=== PATIENT | female | born 1970 | race Caucasian/White ===

== ENCOUNTER 2022-06-10 00:05 | Emergency (ER) | payer MEDICAID ==
[2022-06-10] MEDS: Acetaminophen 325 MG Tab PO ONE (00:56)
== END 2022-06-10 04:37 | disposition short-term general hospital (02) ==
LOC: VM.ED 00:05
DX: S62.114A Nondisplaced fracture of triquetrum [cuneiform] bone, right wrist, initial encounter for closed fracture (principal); L08.9 Local infection of the skin and subcutaneous tissue, unspecified; Z79.82 Long term (current) use of aspirin; Z79.899 Other long term (current) drug therapy; W19.XXXA Unspecified fall, initial encounter
CPT/HCPCS: 36415; 73110-RT; 80053; 85025; 99284; A9270-GY

== ENCOUNTER 2022-06-27 15:42 | Emergency (ER) | payer MEDICAID ==
[2022-06-27] MEDS ORDERED: Orphenadrine 60 MG/2 ML Inj IM ONE (15:54)
[2022-06-27] MEDS ORDERED: Ketorolac 30 MG/ML SDV IM ONE (15:54)
[2022-06-27] MEDS ORDERED: Take Home: traMADol 50 MG, 4 Tab Pack PO ONE (17:06)
[2022-06-27] MEDS ORDERED: Take Home: Cyclobenzaprine 10 MG Tab, 4 Tab Pack PO ONE (17:06)
== END 2022-06-27 17:28 | disposition home or self-care (01) ==
LOC: SUPCPDRO 15:42 → VM.ED 15:42
DX: M54.41 Lumbago with sciatica, right side (principal); I25.10 Atherosclerotic heart disease of native coronary artery without angina pectoris; I12.9 Hypertensive chronic kidney disease with stage 1 through stage 4 chronic kidney disease, or unspecified chronic kidney disease; N18.9 Chronic kidney disease, unspecified; E03.9 Hypothyroidism, unspecified; Z79.82 Long term (current) use of aspirin; Z79.899 Other long term (current) drug therapy; Z72.0 Tobacco use
CPT/HCPCS: 72100; 96372; 99283; A9270-GY; J1885; J2360

== ENCOUNTER 2023-10-28 11:07 | Emergency (ER) | payer MEDICAID ==
[2023-10-28] MEDS ORDERED: Sodium Chloride 0.9% 10 ML Syringe FLUSH PRN (11:26)
[2023-10-28 11:50] LABS: BASOPHILS PERCENT AUTO 0.3 % (0.2-1.2); EOSINOPHILS ABSOLUTE AUTO 0.2 x10^3/uL (0.0-0.5); EOSINOPHILS PERCENT AUTO 2.6 % (0.0-4.0); HEMATOCRIT 43.1 % (33.0-47.0); HEMOGLOBIN 14.4 g/dL (12.0-16.0); IMMATURE GRAN ABSOLUTE AUTO 0.01 x10^3/uL (0.00-0.07); LYMPHOCYTES ABSOLUTE AUTO 2.1 x10^3/uL (1.0-4.8); LYMPHOCYTES PERCENT AUTO 28.4 % (25.0-50.0); MEAN CORPUSCULAR HGB CONC 33.4 g/dL (32.0-36.0); MEAN CORPUSCULAR VOLUME 83.7 fL (78.0-93.0); MONOCYTES ABSOLUTE AUTO 0.5 x10^3/uL (0.0-0.8); MONOCYTES PERCENT AUTO 7.3 % (2.0-11.0); NEUTROPHILS ABSOLUTE AUTO 4.4 x10^3/uL (1.8-7.7); NEUTROPHILS PERCENT AUTO 61.3 % (50.0-80.0); PLATELET COUNT,PLT 256 x10^3/uL (130-400); RED BLOOD CELL COUNT 5.15 x10^6/uL (4.00-5.50); WHITE BLOOD CELL COUNT,WBC 7.2 x10^3/uL (4.0-10.0)
[2023-10-28 12:09] LABS: PROTHROMBIN TIME 10.6 SEC (8.9-11.5)
[2023-10-28] MEDS: Metoclopramide 10 MG/2 ML SDV IVPUSH ONE (12:13)
[2023-10-28] MEDS: Ketorolac 15 MG/ML SDV IVPUSH ONE (12:15)
[2023-10-28 12:17] LABS: A/G RATIO 0.97; ALANINE AMINOTRANSFERASE,ALT 21 U/L (14-59); ALBUMIN 3.6 g/dL (3.4-5.0); ALKALINE PHOSPHATASE 86 U/L (46-116); ASPARTATE AMNIOTRANSFERASE,AST 19 U/L (15-37); BILIRUBIN TOTAL 0.2 mg/dL (0.2-1.0); BLOOD UREA NITROGEN,BUN 18 mg/dL (7-18); CALCIUM 10.5 mg/dL (8.5-10.1); CARBON DIOXIDE,CO2 24 mmol/L (21-32); CHLORIDE,CL 106 mmol/L (98-107); CREATININE 1.4 mg/dL (0.55-1.02); GLUCOSE RANDOM 97 mg/dL (70-99); MAGNESIUM 1.8 mg/dL (1.8-2.4); POTASSIUM,K 4.3 mmol/L (3.5-5.1); PROTEIN TOTAL,TP 7.3 g/dL (6.4-8.2); SODIUM,NA 143 mmol/L (136-145)
[2023-10-28 12:25] LABS: ANION GAP 17.3 mmol/L (5-15); ESTIMATED GFR 44 mL/min (>=60)
== END 2023-10-28 12:52 | disposition home or self-care (01) ==
LOC: VM.ED 11:07
DX: I13.10 Hypertensive heart and chronic kidney disease without heart failure, with stage 1 through stage 4 chronic kidney disease, or unspecified chronic kidney disease (principal); I51.9 Heart disease, unspecified; N18.9 Chronic kidney disease, unspecified; I25.10 Atherosclerotic heart disease of native coronary artery without angina pectoris; E03.9 Hypothyroidism, unspecified; F17.210 Nicotine dependence, cigarettes, uncomplicated; Z79.82 Long term (current) use of aspirin; Z79.899 Other long term (current) drug therapy
CPT/HCPCS: 70450; 71045; 80053; 83735; 84484; 85025; 85610; 85730; 93005; 93010; 96374; 96375; 99284; 99284-25; J1885; J2765

== ENCOUNTER 2024-04-18 11:35 | Inpatient (IN) | payer MEDICAID ==
[2024-04-18] MEDS: HYDROmorphone 1 MG/ML Syringe IVPUSH ONE ×2 (11:44→14:59)
[2024-04-18 11:54] LABS: BASOPHILS PERCENT AUTO 0.2 % (0.2-1.2); EOSINOPHILS ABSOLUTE AUTO 0.1 x10^3/uL (0.0-0.5); EOSINOPHILS PERCENT AUTO 0.5 % (0.0-4.0); HEMATOCRIT 55.5 % (33.0-47.0); HEMOGLOBIN 19.4 g/dL (12.0-16.0); IMMATURE GRAN ABSOLUTE AUTO 0.03 x10^3/uL (0.00-0.07); LYMPHOCYTES ABSOLUTE AUTO 1.8 x10^3/uL (1.0-4.8); LYMPHOCYTES PERCENT AUTO 13.3 % (25.0-50.0); MONOCYTES ABSOLUTE AUTO 0.5 x10^3/uL (0.0-0.8); NEUTROPHILS ABSOLUTE AUTO 10.9 x10^3/uL (1.8-7.7); NEUTROPHILS PERCENT AUTO 81.8 % (50.0-80.0); PLATELET COUNT,PLT 323 x10^3/uL (130-400); RED BLOOD CELL COUNT 6.94 x10^6/uL (4.00-5.50); WHITE BLOOD CELL COUNT,WBC 13.3 x10^3/uL (4.0-10.0)
[2024-04-18 12:15] LABS: A/G RATIO 0.86; ALANINE AMINOTRANSFERASE,ALT 20 U/L (14-59); ALBUMIN 4.2 g/dL (3.4-5.0); ALKALINE PHOSPHATASE 126 U/L (46-116); ASPARTATE AMNIOTRANSFERASE,AST 22 U/L (15-37); BILIRUBIN TOTAL 0.8 mg/dL (0.2-1.0); BLOOD UREA NITROGEN,BUN 40 mg/dL (7-18); CALCIUM 9.8 mg/dL (8.5-10.1); CARBON DIOXIDE,CO2 21 mmol/L (21-32); CHLORIDE,CL 98 mmol/L (98-107); GLUCOSE RANDOM 175 mg/dL (70-99); LIPASE 40 U/L (19-71); POTASSIUM,K 3.5 mmol/L (3.5-5.1); PROTEIN TOTAL,TP 9.1 g/dL (6.4-8.2); SODIUM,NA 137 mmol/L (136-145)
[2024-04-18 12:17] LABS: ANION GAP 21.5 mmol/L (5-15); ESTIMATED GFR 29 mL/min (>=60)
[2024-04-18] MEDS: Sodium Chloride 0.9% 1,000 ML IV ONE (12:59)
[2024-04-18] MEDS: Alum Hydrox/Mag Hydrox/Simeth 30 ML, Lidocaine 2% 15 ML PO ONE (14:36)
[2024-04-18] MEDS: Ondansetron 4 MG Tab.DIS PO ONE (14:45)
[2024-04-18 16:26] LABS: APPEARANCE,URINE CLEAR (CLEAR); BILIRUBIN,URINE NEGATIVE (NEGATIVE); COLOR,URINE YELLOW (YELLOW); GLUCOSE,URINE NEGATIVE (NEGATIVE); KETONES,URINE TRACE mg/dL (NEGATIVE); LEUKOCYTE ESTERASE,URINE NEGATIVE (NEGATIVE); NITRITE,URINE NEGATIVE (NEGATIVE); OCCULT BLOOD,URINE MODERATE (NEGATIVE); PH,URINE 5.5 (5.0-8.0); PROTEIN,URINE 100 mg/dL (NEGATIVE); UROBILINOGEN,URINE 0.2 EU/dL (0.2)
[2024-04-18 16:33] LABS: BACTERIA,URINE NOT SEEN /HPF (NOT SEEN); HYALINE CASTS,URINE FEW; MUCUS,URINE NOT SEEN /LPF (NOT SEEN); RBC,URINE 0-5 /HPF (NOT SEEN); SQUAMOUS EPITHELIAL CELLS,UR FEW /HPF (NOT SEEN); WBC,URINE 0-5 /HPF (NOT SEEN)
[2024-04-18] MEDS ORDERED: HYDROmorphone 0.5 MG/0.5 ML Syringe IVPUSH PRN (16:33)
[2024-04-18] MEDS ORDERED: Labetalol 20 MG/4 ML Syringe IVPUSH PRN (16:45)
[2024-04-18] MEDS: Ondansetron 4 MG/2 ML SDV IV PRN (17:03)
[2024-04-18] MEDS: Labetalol 20 MG/4 ML Syringe IVPUSH ONE (17:04)
[2024-04-18 17:10] LABS: AMPHETAMINES SCREEN, URINE NEGATIVE (NEGATIVE); BARBITURATE SCREEN,URINE NEGATIVE (NEGATIVE); BENZODIAZEPINES SCREEN,URINE NEGATIVE (NEGATIVE); BUPRENORPHINE SCREEN,URINE NEGATIVE (NEGATIVE); COCAINE METABOLITES,URINE NEGATIVE (NEGATIVE); METHADONE SCREEN, URINE NEGATIVE (NEGATIVE); METHAMPHETAMINE SCREEN, URINE POSITIVE (NEGATIVE); OXYCODONE SCREEN,URINE NEGATIVE (NEGATIVE); PCP SCREEN,URINE NEGATIVE (NEGATIVE); THC SCREEN,URINE 50 NG/ML POSITIVE (NEGATIVE)
[2024-04-18] MEDS: Dextrose 5%-0.45% NaCl 1,000 ML IV SCH (17:10)
[2024-04-18 17:30] LABS: C-REACTIVE PROTEIN 0.9 mg/dL (<=0.50); MAGNESIUM 2.3 mg/dL (1.8-2.4)
[2024-04-18] MEDS: Pantoprazole 40 MG Vial IVPUSH SCH (17:52)
[2024-04-18] MEDS: HYDROmorphone 1 MG/ML Syringe IVPUSH PRN (17:54)
[2024-04-18] MEDS: Nicotine 21 MG/24 Hr Patch TRDERM SCH (17:58)
[2024-04-19] MEDS: Levothyroxine 50 MCG Tab PO SCH (06:47)
[2024-04-19 08:05] LABS: BASOPHILS PERCENT AUTO 0.2 % (0.2-1.2); EOSINOPHILS ABSOLUTE AUTO 0.2 x10^3/uL (0.0-0.5); EOSINOPHILS PERCENT AUTO 1.5 % (0.0-4.0); HEMATOCRIT 47.5 % (33.0-47.0); HEMOGLOBIN 16.1 g/dL (12.0-16.0); IMMATURE GRAN ABSOLUTE AUTO 0.03 x10^3/uL (0.00-0.07); LYMPHOCYTES ABSOLUTE AUTO 2.6 x10^3/uL (1.0-4.8); LYMPHOCYTES PERCENT AUTO 21.9 % (25.0-50.0); MEAN CORPUSCULAR HEMOGLOBIN 27.9 pg (26.0-32.0); MEAN CORPUSCULAR HGB CONC 33.9 g/dL (32.0-36.0); MEAN CORPUSCULAR VOLUME 82.2 fL (78.0-93.0); MONOCYTES ABSOLUTE AUTO 0.9 x10^3/uL (0.0-0.8); MONOCYTES PERCENT AUTO 7.3 % (2.0-11.0); NEUTROPHILS ABSOLUTE AUTO 8.1 x10^3/uL (1.8-7.7); NEUTROPHILS PERCENT AUTO 68.8 % (50.0-80.0); PLATELET COUNT,PLT 300 x10^3/uL (130-400); RED BLOOD CELL COUNT 5.78 x10^6/uL (4.00-5.50); WHITE BLOOD CELL COUNT,WBC 11.8 x10^3/uL (4.0-10.0)
[2024-04-19 08:30] LABS: A/G RATIO 0.79; ALBUMIN 3.3 g/dL (3.4-5.0); ANION GAP 13.1 mmol/L (5-15); BILIRUBIN TOTAL 0.5 mg/dL (0.2-1.0); CALCIUM 8.9 mg/dL (8.5-10.1); CREATININE 1.3 mg/dL (0.55-1.02); EST CRCL DRUG DOSING (CG) 47.55 mL/min; POTASSIUM,K 3.1 mmol/L (3.5-5.1); PROTEIN TOTAL,TP 7.5 g/dL (6.4-8.2)
[2024-04-19] MEDS: amLODIPine 5 MG Tab PO SCH (08:39)
[2024-04-19] MEDS: Aspirin 81 MG Tab.EC PO SCH (08:40)
[2024-04-19] MEDS: Metoprolol Succinate 50 MG Tab.ER PO SCH (08:40)
[2024-04-19] MEDS: Escitalopram 10 MG Tab PO SCH (08:40)
[2024-04-19] MEDS: atorvaSTATin 40 MG Tab PO SCH (08:40)
[2024-04-19] MEDS: Enoxaparin 40 MG/0.4 ML Syringe SUBCUT SCH (13:52)
[2024-04-19] MEDS: Potassium Chloride 10 MEQ Tab.ER PO SCH (18:46)
== END 2024-04-19 17:20 | disposition home or self-care (01) | DRG 392 ==
LOC: VM.ED 11:35 → VM.MS 16:32
PROVIDERS: ADMIT Nurse Practitioner Family; ATTEND Family Medicine
DX: K29.70 Gastritis, unspecified, without bleeding (principal); N17.9 Acute kidney failure, unspecified; E87.20 Acidosis, unspecified; J96.11 Chronic respiratory failure with hypoxia; F17.210 Nicotine dependence, cigarettes, uncomplicated; I25.10 Atherosclerotic heart disease of native coronary artery without angina pectoris; E78.5 Hyperlipidemia, unspecified; E03.9 Hypothyroidism, unspecified; N18.31 Chronic kidney disease, stage 3a; F41.1 Generalized anxiety disorder; B18.2 Chronic viral hepatitis C; D72.829 Elevated white blood cell count, unspecified; M54.40 Lumbago with sciatica, unspecified side; G89.29 Other chronic pain; I12.9 Hypertensive chronic kidney disease with stage 1 through stage 4 chronic kidney disease, or unspecified chronic kidney disease; Z90.5 Acquired absence of kidney; Z95.1 Presence of aortocoronary bypass graft; Z79.82 Long term (current) use of aspirin; Z79.899 Other long term (current) drug therapy; Z79.02 Long term (current) use of antithrombotics/antiplatelets
CPT/HCPCS: 36415; 74176; 80053; 80305-QW; 81001; 82140; 82550; 83605; 83690; 83735; 83880; 84145; 84484; 85025; 86140; 93005; 96361; 96374; 96376; 99284; 99285-25; A9270-GY; J1171; J1650; J1920; J2405; J2470; J7030; J7799

== ENCOUNTER 2024-08-14 17:25 | Emergency (ER) | payer MEDICAID ==
[2024-08-14] MEDS ORDERED: Acetaminophen 650 MG Tab.ER PO STA (17:51)
[2024-08-14 18:01] LABS: BASOPHILS PERCENT AUTO 0.3 % (0.2-1.2); EOSINOPHILS ABSOLUTE AUTO 0.2 x10^3/uL (0.0-0.5); EOSINOPHILS PERCENT AUTO 2.9 % (0.0-4.0); HEMATOCRIT 41.1 % (33.0-47.0); HEMOGLOBIN 13.6 g/dL (12.0-16.0); IMMATURE GRAN ABSOLUTE AUTO 0.01 x10^3/uL (0.00-0.07); LYMPHOCYTES ABSOLUTE AUTO 1.5 x10^3/uL (1.0-4.8); LYMPHOCYTES PERCENT AUTO 20.5 % (25.0-50.0); MEAN CORPUSCULAR HEMOGLOBIN 27.9 pg (26.0-32.0); MEAN CORPUSCULAR HGB CONC 33.1 g/dL (32.0-36.0); MEAN CORPUSCULAR VOLUME 84.4 fL (78.0-93.0); MONOCYTES ABSOLUTE AUTO 0.5 x10^3/uL (0.0-0.8); MONOCYTES PERCENT AUTO 6.6 % (2.0-11.0); NEUTROPHILS PERCENT AUTO 69.6 % (50.0-80.0); PLATELET COUNT,PLT 218 x10^3/uL (130-400); RED BLOOD CELL COUNT 4.87 x10^6/uL (4.00-5.50); WHITE BLOOD CELL COUNT,WBC 7.1 x10^3/uL (4.0-10.0)
[2024-08-14 18:24] LABS: A/G RATIO 0.97; ALBUMIN 3.3 g/dL (3.4-5.0); ANION GAP 15.3 mmol/L (5-15); BILIRUBIN TOTAL 0.3 mg/dL (0.2-1.0); CALCIUM 8.5 mg/dL (8.5-10.1); CREATININE 1.4 mg/dL (0.55-1.02); EST CRCL DRUG DOSING (CG) 43.63 mL/min; MAGNESIUM 1.8 mg/dL (1.8-2.4); POTASSIUM,K 4.3 mmol/L (3.5-5.1); PROTEIN TOTAL,TP 6.7 g/dL (6.4-8.2)
[2024-08-14 18:46] LABS: APPEARANCE,URINE SLIGHTLY CLOUDY (CLEAR); BILIRUBIN,URINE NEGATIVE (NEGATIVE); COLOR,URINE YELLOW (YELLOW); GLUCOSE,URINE NEGATIVE (NEGATIVE); KETONES,URINE NEGATIVE (NEGATIVE); LEUKOCYTE ESTERASE,URINE TRACE (NEGATIVE); NITRITE,URINE NEGATIVE (NEGATIVE); OCCULT BLOOD,URINE NEGATIVE (NEGATIVE); PH,URINE 5.5 (5.0-8.0); PROTEIN,URINE NEGATIVE (NEGATIVE); UROBILINOGEN,URINE 0.2 EU/dL (0.2)
[2024-08-14] MEDS: Meclizine 25 MG Tab PO ONE (18:46)
[2024-08-14 18:47] LABS: AMPHETAMINES SCREEN, URINE NEGATIVE (NEGATIVE); BARBITURATE SCREEN,URINE NEGATIVE (NEGATIVE)
[2024-08-14 18:48] LABS: BENZODIAZEPINES SCREEN,URINE NEGATIVE (NEGATIVE); BUPRENORPHINE SCREEN,URINE NEGATIVE (NEGATIVE); COCAINE METABOLITES,URINE NEGATIVE (NEGATIVE); METHADONE SCREEN, URINE NEGATIVE (NEGATIVE); METHAMPHETAMINE SCREEN, URINE NEGATIVE (NEGATIVE); OXYCODONE SCREEN,URINE NEGATIVE (NEGATIVE); PCP SCREEN,URINE NEGATIVE (NEGATIVE)
[2024-08-14] MEDS: Acetaminophen 325 MG Tab PO ONE (18:48)
[2024-08-14 18:49] LABS: THC SCREEN,URINE 50 NG/ML POSITIVE (NEGATIVE)
[2024-08-14 18:53] LABS: BACTERIA,URINE FEW /HPF (NOT SEEN); RBC,URINE 0-5 /HPF (NOT SEEN); SQUAMOUS EPITHELIAL CELLS,UR MODERATE /HPF (NOT SEEN)
[2024-08-14] MEDS: Take Home: Cephalexin 250 MG Cap, 4 Cap Pack PO ONE (19:02)
== END 2024-08-14 19:05 | disposition home or self-care (01) ==
LOC: VM.ED 17:25
DX: R42 Dizziness and giddiness (principal); N39.0 Urinary tract infection, site not specified; I25.10 Atherosclerotic heart disease of native coronary artery without angina pectoris; I12.9 Hypertensive chronic kidney disease with stage 1 through stage 4 chronic kidney disease, or unspecified chronic kidney disease; N18.9 Chronic kidney disease, unspecified; E66.9 Obesity, unspecified; E03.9 Hypothyroidism, unspecified; F17.200 Nicotine dependence, unspecified, uncomplicated; Z79.82 Long term (current) use of aspirin; Z79.890 Hormone replacement therapy; Z79.899 Other long term (current) drug therapy; Z68.32 Body mass index [BMI] 32.0-32.9, adult
CPT/HCPCS: 36415; 70450; 80053; 80305-QW; 81001; 83735; 84484; 85025; 87086; 93005; 93010; 99284; 99284-25; A9270-GY

== ENCOUNTER 2024-10-01 09:53 | Emergency (ER) | payer MEDICAID ==
[2024-10-01 10:39] LABS: APPEARANCE,URINE SLIGHTLY CLOUDY (CLEAR); COLOR,URINE YELLOW (YELLOW)
[2024-10-01 10:40] LABS: BILIRUBIN,URINE NEGATIVE (NEGATIVE); GLUCOSE,URINE NEGATIVE (NEGATIVE); KETONES,URINE NEGATIVE (NEGATIVE); LEUKOCYTE ESTERASE,URINE SMALL (NEGATIVE); NITRITE,URINE NEGATIVE (NEGATIVE); OCCULT BLOOD,URINE TRACE-LYSED (NEGATIVE); PH,URINE 5.5 (5.0-8.0); PROTEIN,URINE NEGATIVE (NEGATIVE); UROBILINOGEN,URINE 0.2 EU/dL (0.2)
[2024-10-01 10:42] LABS: BACTERIA,URINE FEW /HPF (NOT SEEN); SQUAMOUS EPITHELIAL CELLS,UR MANY /HPF (NOT SEEN)
[2024-10-01] MEDS: cefTRIAXone 1 GM, Lidocaine 1% 2.1 ML IM ONE (11:03)
== END 2024-10-01 11:09 | disposition home or self-care (01) ==
LOC: VM.ED 09:53
DX: N39.0 Urinary tract infection, site not specified (principal); I12.9 Hypertensive chronic kidney disease with stage 1 through stage 4 chronic kidney disease, or unspecified chronic kidney disease; N18.9 Chronic kidney disease, unspecified; E66.9 Obesity, unspecified; Z68.41 Body mass index [BMI] 40.0-44.9, adult; I25.10 Atherosclerotic heart disease of native coronary artery without angina pectoris; Z79.899 Other long term (current) drug therapy; Z79.890 Hormone replacement therapy; Z79.82 Long term (current) use of aspirin
CPT/HCPCS: 81001; 87086; 96372; 99284; J0696; J2003

== ENCOUNTER 2024-10-03 14:38 | Inpatient (IN) | payer MEDICAID ==
[2024-10-03] MEDS ORDERED: Sodium Chloride 0.9% 10 ML Syringe FLUSH PRN (14:44)
[2024-10-03] MEDS: Ondansetron 4 MG/2 ML SDV IM ONE (15:16)
[2024-10-03] MEDS: Morphine 4 MG/ML Syringe IM ONE (15:16)
[2024-10-03 15:34] LABS: BASOPHILS PERCENT AUTO 0.1 % (0.2-1.2); HEMATOCRIT 53.5 % (33.0-47.0); HEMOGLOBIN 18.2 g/dL (12.0-16.0); IMMATURE GRAN ABSOLUTE AUTO 0.05 x10^3/uL (0.00-0.07); LYMPHOCYTES PERCENT AUTO 5.3 % (25.0-50.0); MEAN CORPUSCULAR HEMOGLOBIN 27.8 pg (26.0-32.0); MEAN CORPUSCULAR VOLUME 81.8 fL (78.0-93.0); MONOCYTES ABSOLUTE AUTO 0.5 x10^3/uL (0.0-0.8); NEUTROPHILS ABSOLUTE AUTO 16.3 x10^3/uL (1.8-7.7); NEUTROPHILS PERCENT AUTO 91.3 % (50.0-80.0); PLATELET COUNT,PLT 329 x10^3/uL (130-400); RED BLOOD CELL COUNT 6.54 x10^6/uL (4.00-5.50)
[2024-10-03 15:42] LABS: WHITE BLOOD CELL COUNT,WBC 17.9 x10^3/uL (4.0-10.0)
[2024-10-03 15:52] LABS: APPEARANCE,URINE SLIGHTLY CLOUDY (CLEAR); BILIRUBIN,URINE NEGATIVE (NEGATIVE); COLOR,URINE YELLOW (YELLOW); GLUCOSE,URINE 250 mg/dL (NEGATIVE); KETONES,URINE 15 mg/dL (NEGATIVE); LEUKOCYTE ESTERASE,URINE NEGATIVE (NEGATIVE); NITRITE,URINE NEGATIVE (NEGATIVE); OCCULT BLOOD,URINE MODERATE (NEGATIVE); PROTEIN,URINE >=300 mg/dL (NEGATIVE); UROBILINOGEN,URINE 0.2 EU/dL (0.2)
[2024-10-03 15:55] LABS: A/G RATIO 0.83; ALANINE AMINOTRANSFERASE,ALT 13 U/L (14-59); ALBUMIN 4.3 g/dL (3.4-5.0); ALKALINE PHOSPHATASE 148 U/L (46-116); ANION GAP 20.8 mmol/L (5-15); ASPARTATE AMNIOTRANSFERASE,AST 17 U/L (15-37); BILIRUBIN TOTAL 0.5 mg/dL (0.2-1.0); BLOOD UREA NITROGEN,BUN 16 mg/dL (7-18); CALCIUM 9.6 mg/dL (8.5-10.1); CARBON DIOXIDE,CO2 22 mmol/L (21-32); CHLORIDE,CL 100 mmol/L (98-107); CREATINE KINASE,CK 97 U/L (26-192); CREATININE 1.3 mg/dL (0.55-1.02); ESTIMATED GFR 48 mL/min (>=60); GLUCOSE RANDOM 201 mg/dL (70-99); LIPASE 22 U/L (19-71); POTASSIUM,K 3.8 mmol/L (3.5-5.1); PROTEIN TOTAL,TP 9.5 g/dL (6.4-8.2); SODIUM,NA 139 mmol/L (136-145)
[2024-10-03 15:57] LABS: AMPHETAMINES SCREEN, URINE NEGATIVE (NEGATIVE); BARBITURATE SCREEN,URINE NEGATIVE (NEGATIVE); BENZODIAZEPINES SCREEN,URINE NEGATIVE (NEGATIVE); BUPRENORPHINE SCREEN,URINE NEGATIVE (NEGATIVE)
[2024-10-03 15:58] LABS: COCAINE METABOLITES,URINE NEGATIVE (NEGATIVE); METHADONE SCREEN, URINE NEGATIVE (NEGATIVE); METHAMPHETAMINE SCREEN, URINE NEGATIVE (NEGATIVE); OXYCODONE SCREEN,URINE NEGATIVE (NEGATIVE); PCP SCREEN,URINE NEGATIVE (NEGATIVE); THC SCREEN,URINE 50 NG/ML POSITIVE (NEGATIVE)
[2024-10-03] MEDS: amLODIPine 10 MG Tab PO ONE (16:05)
[2024-10-03] MEDS: Metoprolol Tartrate 50 MG Tab PO ONE (16:06)
[2024-10-03 16:22] LABS: BACTERIA,URINE FEW /HPF (NOT SEEN); SQUAMOUS EPITHELIAL CELLS,UR MODERATE /HPF (NOT SEEN); WBC,URINE 0-5 /HPF (NOT SEEN)
[2024-10-03 16:23] LABS: HYALINE CASTS,URINE MODERATE
[2024-10-03] MEDS: Ciprofloxacin 500 MG Tab PO ONE (18:06)
[2024-10-03] MEDS: Lisinopril 20 MG Tab PO ONE (18:06)
[2024-10-03] MEDS ORDERED: Acetaminophen 325 MG Tab PO PRN (18:31)
[2024-10-03] MEDS ORDERED: Morphine 2 MG/ML SYRINGE IVPUSH PRN (18:31)
[2024-10-03] MEDS ORDERED: Albuterol HFA 18 Gm Inhaler INH PRN (18:34)
[2024-10-03] MEDS ORDERED: hydrALAZINE 20 MG/ML SDV IVPUSH PRN (18:37)
[2024-10-03 18:59] LABS: HEMOGLOBIN A1C 5.5 % (<5.7)
[2024-10-03] MEDS ORDERED: ClonazePAM 0.5 MG Tab PO PRN (20:29)
[2024-10-03] MEDS: Pregabalin 25 MG Cap PO SCH (20:53)
[2024-10-03] MEDS: oxyCODONE 5 MG Tab PO PRN (20:54)
[2024-10-03] MEDS ORDERED: Sodium Chloride 0.9% 1,000 ML IV SCH (22:00)
[2024-10-03] MEDS: hydrALAZINE 25 MG Tab PO PRN (22:42)
[2024-10-03] MEDS ORDERED: Naloxone 0.4 MG/ML SDV IVPUSH PRN (22:42)
[2024-10-03] MEDS: Morphine 2 MG/ML SYRINGE IM ONE (23:21)
[2024-10-04] MEDS: cefTRIAXone 1 GM, Lidocaine 1% 2.1 ML IM ONE (00:21)
[2024-10-04] MEDS: Levothyroxine 50 MCG Tab PO SCH (06:12)
[2024-10-04 08:24] LABS: HEMATOCRIT 55.3 % (33.0-47.0); HEMOGLOBIN 18.5 g/dL (12.0-16.0); MEAN CORPUSCULAR HEMOGLOBIN 27.7 pg (26.0-32.0); MEAN CORPUSCULAR HGB CONC 33.5 g/dL (32.0-36.0); MEAN CORPUSCULAR VOLUME 82.8 fL (78.0-93.0); PLATELET COUNT,PLT 345 x10^3/uL (130-400); RED BLOOD CELL COUNT 6.68 x10^6/uL (4.00-5.50)
[2024-10-04 08:28] LABS: WHITE BLOOD CELL COUNT,WBC 26.4 x10^3/uL (4.0-10.0)
[2024-10-04 08:40] LABS: BAND PERCENT MAN 1 % (0-6); LYMPHOCYTES ABSOLUTE MAN 1.3 x10^3/uL (1.0-4.8); LYMPHOCYTES PERCENT MAN 5 % (25-50); MONOCYTES ABSOLUTE MAN 1.3 x10^3/uL (0.0-0.8); MONOCYTES PERCENT MAN 5 % (2-11); NEUTROPHILS ABSOLUTE MAN 23.8 x10^3/uL (1.8-7.7); PLATELET COUNT ESTIMATE ADEQUATE; SEG NEUTROPHILS PERCENT MAN 89 % (50-80)
[2024-10-04 08:45] LABS: A/G RATIO 0.76; ALBUMIN 3.9 g/dL (3.4-5.0); ANION GAP 20.3 mmol/L (5-15); BILIRUBIN TOTAL 0.3 mg/dL (0.2-1.0); CALCIUM 9.5 mg/dL (8.5-10.1); CREATININE 2.9 mg/dL (0.55-1.02); EST CRCL DRUG DOSING (CG) 21.85 mL/min; POTASSIUM,K 4.3 mmol/L (3.5-5.1)
[2024-10-04] MEDS: Nicotine 21 MG/24 Hr Patch TRDERM SCH (08:46)
[2024-10-04] MEDS: Ondansetron 4 MG Tab.DIS PO PRN (08:46)
[2024-10-04] MEDS: Aspirin 81 MG Tab.EC PO SCH (08:47)
[2024-10-04] MEDS: amLODIPine 5 MG Tab PO SCH (08:48)
[2024-10-04] MEDS: Metoprolol Succinate 50 MG Tab.ER PO SCH (08:49)
[2024-10-04] MEDS: DULoxetine 30 MG Cap PO SCH (08:50)
[2024-10-04] MEDS: atorvaSTATin 40 MG Tab PO SCH (08:51)
[2024-10-04] MEDS ORDERED: Non-Formulary Medication 1 Each (Estradiol [Estrace] 1 MG Tablet) PO SCH (09:00)
[2024-10-04] MEDS: Polyethylene Glycol 3350 Powder 17 GM Packet PO SCH (10:05)
[2024-10-04] MEDS: Sennosides/Docusate Sodium 50-8.6 MG Tab PO SCH (10:06)
[2024-10-04] MEDS: Metoclopramide 10 MG Tab PO SCH (10:06)
[2024-10-04] MEDS: Lactated Ringers 1,000 ML IV SCH (15:02)
[2024-10-04] MEDS: cefTRIAXone 1 GM in Sodium Chloride 0.9% 50 ML IV SCH (19:22)
[2024-10-04] MEDS ORDERED: cefTRIAXone 1 GM in Sodium Chloride 0.9% 100 ML IV SCH (20:18)
[2024-10-04] MEDS: cefTRIAXone 1 GM Vial IV SCH (20:22)
[2024-10-04] MEDS ORDERED: cefTRIAXone 1 GM Vial IV SCH (20:30)
[2024-10-04] MEDS: Ondansetron 4 MG/2 ML SDV IVPUSH ONE (22:01)
[2024-10-04] MEDS: Lactated Ringers 1,000 ML IV ONE (22:02)
[2024-10-04] MEDS: Morphine 4 MG/ML Syringe IVPUSH ONE (22:02)
[2024-10-05 06:56] LABS: HEMATOCRIT 46.5 % (33.0-47.0); HEMOGLOBIN 15.3 g/dL (12.0-16.0); MEAN CORPUSCULAR HEMOGLOBIN 27.6 pg (26.0-32.0); MEAN CORPUSCULAR HGB CONC 32.9 g/dL (32.0-36.0); MEAN CORPUSCULAR VOLUME 83.9 fL (78.0-93.0); PLATELET COUNT,PLT 259 x10^3/uL (130-400); RED BLOOD CELL COUNT 5.54 x10^6/uL (4.00-5.50); WHITE BLOOD CELL COUNT,WBC 17.9 x10^3/uL (4.0-10.0)
[2024-10-05 07:22] LABS: CALCIUM 8.8 mg/dL (8.5-10.1); CREATININE 2.6 mg/dL (0.55-1.02); EST CRCL DRUG DOSING (CG) 24.37 mL/min; POTASSIUM,K 4.2 mmol/L (3.5-5.1)
[2024-10-05 07:37] LABS: LYMPHOCYTES ABSOLUTE MAN 2.7 x10^3/uL (1.0-4.8); LYMPHOCYTES PERCENT MAN 15 % (25-50); MONOCYTES ABSOLUTE MAN 0.9 x10^3/uL (0.0-0.8); MONOCYTES PERCENT MAN 5 % (2-11); NEUTROPHILS ABSOLUTE MAN 14.3 x10^3/uL (1.8-7.7); SEG NEUTROPHILS PERCENT MAN 80 % (50-80)
[2024-10-05 07:40] LABS: ANISOCYTOSIS NOT SEEN; PLATELET COUNT ESTIMATE ADEQUATE; POIKILOCYTOSIS RARE
[2024-10-05 07:41] LABS: ANION GAP 14.2 mmol/L (5-15)
== END 2024-10-05 12:20 | disposition left against medical advice (07) | DRG 690 ==
LOC: VM.ED 14:38 → VM.MS 18:22 → OBSVTOIN 18:31
PROVIDERS: ADMIT Family Medicine; ATTEND Family Medicine
DX: N30.00 Acute cystitis without hematuria (principal); N17.9 Acute kidney failure, unspecified; I16.0 Hypertensive urgency; I25.10 Atherosclerotic heart disease of native coronary artery without angina pectoris; I12.9 Hypertensive chronic kidney disease with stage 1 through stage 4 chronic kidney disease, or unspecified chronic kidney disease; M54.9 Dorsalgia, unspecified; G89.29 Other chronic pain; F41.9 Anxiety disorder, unspecified; F17.200 Nicotine dependence, unspecified, uncomplicated; E66.9 Obesity, unspecified; E03.9 Hypothyroidism, unspecified; K21.9 Gastro-esophageal reflux disease without esophagitis; E78.5 Hyperlipidemia, unspecified; N18.31 Chronic kidney disease, stage 3a; E86.0 Dehydration; K59.00 Constipation, unspecified; Z79.899 Other long term (current) drug therapy; Z79.52 Long term (current) use of systemic steroids; Z95.1 Presence of aortocoronary bypass graft; Z95.5 Presence of coronary angioplasty implant and graft; Z68.25 Body mass index [BMI] 25.0-25.9, adult; Z90.5 Acquired absence of kidney; Z79.82 Long term (current) use of aspirin; Z79.890 Hormone replacement therapy
CPT/HCPCS: 36415; 70450; 71045; 74176; 80048; 80053; 80305-QW; 81001; 82550; 83036; 83605; 83690; 84443; 85025; 86140; 96361; 96372; 99223; 99284; 99285; A9270-GY; G0378; J0696; J2003; J2270; J2405; J7120